=== PATIENT | male | born 1935 ===

== ENCOUNTER 2017-09-30 20:42 | Emergency (ER) | payer MEDICARE ==
[2017-09-30 22:34] LABS: Urine Appearance Clear; Urine Blood 1+ (Negative); Urine Color Yellow; Urine Ketones Negative (Negative); Urine Protein Negative (Negative); Urine Urobilinogen Negative (Negative)
[2017-09-30 22:35] VITALS: BP 109/69
--- NOTE | 2017-09-30 23:03 | ED ---
Saundra Singh Emily, scribed for Allie Braxton MD on 09/30/17 at 2142 . GI/ HPI - HPI Summary HPI Summary: This patient is an 82 year old M presenting to [facility] accompanied by daughter with a chief complaint of decreased urinary output that began 2 weeks ago. The patient rates the pain 0/10 in severity. Symptoms aggravated by nothing. Symptoms alleviated by nothing. Daughter reports that the patient has an enlarged prostate. Daughter does not believe the patient has had a previous catheter. - History of Current Complaint Chief Complaint: EDUrogenitalProblems Time Seen by Provider: 09/30/17 21:28 Stated Complaint: UNABLE TO URINATE Hx Obtained From: Patient Onset/Duration: Started Weeks Ago, Atraumatic, Still Present Timing: Constant Severity: Mild Current Severity: Mild Pain Intensity: 0 Aggravating Factor(s): Nothing Alleviating Factor(s): Nothing - Allergy/Home Medications Allergies/Adverse Reactions: Allergies Allergy/AdvReac Type Severity Reaction Status Date / Time No Known Allergies Allergy Verified 02/22/12 13:07 Home Medications: Home Medications Atorvastatin* [Lipitor*] 20 mg PO DAILY 09/30/17 [History Confirmed 09/30/17] Calcium Carb/D3/Magnesium/Zinc [Roberth Mag Zinc + D3 Tablet] 1 each PO DAILY [History Confirmed 09/30/17] Cholecalciferol TAB* [Vitamin D TAB*] 400 unit PO DAILY 09/30/17 [History Confirmed 09/30/17] Donepezil TAB* [Aricept 5 MG TAB*] 10 mg PO DAILY 09/30/17 [History Confirmed ] Finasteride [Proscar] 5 mg PO DAILY 09/30/17 [History Confirmed 09/30/17] Memory/Focus Vitamin 1 cap PO DAILY 09/30/17 [History Confirmed 09/30/17] Strong [place] 1 cap PO DAILY 09/30/17 [History Confirmed 09/30/17] Tamsulosin CAP* [Flomax CAP*] 0.8 mg PO BEDTIME 09/30/17 [History Confirmed ] Ubidecarenone [Coq10] 100 mg PO DAILY 09/30/17 [History Confirmed 09/30/17] amLODIPine TAB* [Norvasc 5 mg TAB*] 10 mg PO DAILY 09/30/17 [History Confirmed 09/30/17] metFORMIN* [Glucophage 500 MG TAB *] 500 mg PO DAILY 09/30/17 [History Confirmed 09/30/17] PMH/Surg Hx/FS Hx/Imm Hx Previously Healthy: No Endocrine/Hematology History: Denies: Hx Diabetes Cardiovascular History: Reports: Hx Hypertension - ON MEDICATION Denies: Hx Pacemaker/ICD History: Reports: Hx Dialysis Denies: Hx Renal Disease Sensory History: Denies: Hx Hearing Aid Psychiatric History: Denies: Hx Panic Disorder - Surgical History Surgery Procedure, Year, and Place: CATARACTS Infectious Disease History: No Infectious Disease History: Denies: Traveled Outside the [place] in Last 30 Days - Family History Known Family History: Negative: Cardiac Disease - Social History Occupation: Retired Lives: With Family Alcohol Use: None Hx Substance Use: No Substance Use Type: Reports: None Hx Tobacco Use: No Review of Systems Negative: Fever Genitourinary: Other - Positive decreased urinary output All Other Systems Reviewed And Are Negative: Yes Physical Exam - Summary Physical Exam Summary: VITAL SIGNS: Reviewed. GENERAL: Patient is a well-developed and nourished male who is lying comfortable in the stretcher. Patient is not in any acute respiratory distress. HEAD AND FACE: No signs of trauma. No ecchymosis, hematomas or skull depressions. No sinus tenderness. EYES: PERRLA, EOMI x 2, No injected conjunctiva, no nystagmus. EARS: Hearing grossly intact. Ear canals and tympanic membranes are within normal limits. MOUTH: Oropharynx within normal limits. NECK: Supple, trachea is midline, no adenopathy, no JVD, no carotid bruit, no c- spine tenderness, neck with full ROM. CHEST: Symmetric, no tenderness at palpation LUNGS: Clear to auscultation bilaterally. No wheezing or crackles. CVS: Regular rate and rhythm, S1 and S2 present, no murmurs or gallops appreciated. ABDOMEN: Soft. Suprapubic fullness, tenderness, and dullness. No rebound no guarding, and no masses palpated. Bowel sounds are normal. EXTREMITIES: FROM in all major joints, no edema, no cyanosis or clubbing. NEURO: Alert and oriented x 3. No acute neurological deficits. Speech is normal and follows commands. SKIN: Dry and warm Triage Information Reviewed: Yes Vital Signs On Initial Exam: Initial Vitals Temp Pulse Resp BP Pulse Ox 98.5 F 103 20 120/69 96 09/30/17 20:47 09/30/17 20:47 09/30/17 20:47 09/30/17 20:47 09/30/17 20:47 Vital Signs Reviewed: Yes Diagnostics - Vital Signs Vital Signs Temp Pulse Resp BP Pulse Ox 09/30/17 20:47 98.5 F 103 20 120/69 96 - Laboratory Lab Results: Lab Results 09/30/17 Range/Units 22:13 Urine Color Yellow Urine Appearance Clear Urine pH 7.0 (5-9) Ur Specific [place] 1.010 (1.010-1.030) Urine Protein Negative (Negative) Urine Ketones Negative (Negative) Urine Blood 1+ A (Negative) Urine Nitrate Negative (Negative) Urine Bilirubin Negative (Negative) Urine Urobilinogen Negative (Negative) Ur Leukocyte Esterase Negative (Negative) Urine WBC (Auto) Trace(0-5/hpf) (Absent) Urine RBC (Auto) Trace(0-2/hpf) (Absent) Urine Bacteria Absent (Absent) Urine Glucose Negative (Negative) Lab Statement: Any lab studies that have been ordered have been reviewed, and results considered in the medical decision making process. Re-Evaluation - Re-Evaluation First Eval Re-Evaluation Time: 22:42 Change: Unchanged Comment: Discussed results and plan of care with pt GIGU Course/Dx - Course Course Of Treatment: 82 years old male with past medical history enlarged prostate. Patient emergency room with his daughter because of difficulty urination. On exam blood skin patient was found to be in acute urinary retention. Radford catheter placed, 500 cc of urine output. Patient feeds better. Will be discharged home to follow-up. Dr. Simmons, - Diagnoses Provider Diagnoses: Urinary retention Discharge - Sign-Out/Discharge Documenting (check all that apply): Discharge/Admit/Transfer - Discharge home - Discharge Plan Condition: Stable Disposition: HOME Patient Education Materials: Urinary Retention in Men (ED) Referrals: Ramiro Palacios MD [Primary Care Provider] - 3 Days Benito Edward MD [Medical Doctor] - 1 Day Additional Instructions: RETURN TO THE EMERGENCY DEPARTMENT FOR NEW OR WORSENING SYMPTOMS - Billing Disposition and Condition Condition: STABLE Disposition: Home The documentation as recorded by the Saundra dunaway Emily accurately reflects the service I personally performed and the decisions made by me, Allie Braxton MD.
== END 2017-09-30 22:55 | disposition home or self-care (01) ==
LOC: ED 20:42
DX: R33.9 Retention of urine, unspecified (principal); I10 Essential (primary) hypertension; N40.0 Benign prostatic hyperplasia without lower urinary tract symptoms
CPT/HCPCS: 81003; 81015; 87086; 99282

== ENCOUNTER 2019-04-28 07:25 | Emergency (ER) | payer MEDICARE ==
--- NOTE | 2019-04-28 07:49 | ED ---
GI/ HPI - HPI Summary HPI Summary: Pt. is an 83 y.o male who presents to the ER for dysuria and bladder pain since this morning. Pt. with hx of enlarged prostate and sees Dr. Edward. Pt.'s daughter notes he had urinary retention last week and had rainey placed by Dr. Edward x 5 days. Rainey was removed yesterday and pt. was able to urinate normally. This morning pt. c/o severe bladder pressure and pain when trying to urinate. No associated fever, vomiting. Sxs are mild in severity. No current modifying factors. - History of Current Complaint Chief Complaint: EDUrogenitalProblems Time Seen by Provider: 04/28/19 07:48 Stated Complaint: PROSTATE ISSUE PER PT Hx Obtained From: Family/Marketing Communications Specialist Pain Intensity: 2 - Allergy/Home Medications Allergies/Adverse Reactions: Allergies Allergy/AdvReac Type Severity Reaction Status Date / Time amoxicillin [From Augmentin] Allergy Hives Verified 04/28/19 07:36 clavulanic acid Allergy Hives Verified 04/28/19 07:36 [From Augmentin] Home Medications: Home Medications Lisinopril TAB* [Prinivil TAB*] 10 mg PO DAILY 04/28/19 [History Confirmed 04/28] Mirtazapine TAB* [Remeron TAB*] 7.5 mg PO BEDTIME 04/28/19 [History Confirmed ] Saw [place] Fruit [Saw [place]] 450 mg PO DAILY 04/28/19 [History Confirmed ] Triamcinolone 0.1% CREAM(NF) [Kenalog Cream 0.1%(NF)] 1 applic TOPICAL DAILY [History Confirmed 04/28/19] PMH/Surg Hx/FS Hx/Imm Hx Previously Healthy: Yes Endocrine/Hematology History: Denies: Hx Diabetes Cardiovascular History: Reports: Hx Hypertension - ON MEDICATION Denies: Hx Pacemaker/ICD History: Denies: Hx Dialysis, Hx Renal Disease Sensory History: Denies: Hx Hearing Aid Psychiatric History: Denies: Hx Panic Disorder - Surgical History Surgery Procedure, Year, and Place: CATARACTS Infectious Disease History: No Infectious Disease History: Denies: Traveled Outside the [place] in Last 30 Days - Family History Known Family History: Positive: Non-Contributory Negative: Cardiac Disease - Social History Occupation: Retired Lives: With Family Alcohol Use: None Hx Substance Use: No Substance Use Type: Reports: None Hx Tobacco Use: No Smoking Status (MU): Never Smoked Tobacco Review of Systems Constitutional: Negative Negative: Fever, Chills Gastrointestinal: Negative Negative: Abdominal Pain, Vomiting, Nausea Genitourinary: Other - bladder pressure. Dysuria All Other Systems Reviewed And Are Negative: Yes Physical Exam Triage Information Reviewed: Yes Vital Signs On Initial Exam: Initial Vitals Temp Pulse Resp BP Pulse Ox 98.1 F 107 18 115/84 97 04/28/19 07:32 04/28/19 07:32 04/28/19 07:32 04/28/19 07:32 04/28/19 07:32 Vital Signs Reviewed: Yes Appearance: Positive: Well-Appearing - Pt. lying in bed, appears uncomfortable but nontoxic. Daughter present. Skin: Positive: Warm, Dry Head/Face: Positive: Normal Head/Face Inspection Eyes: Positive: Normal, EOMI, PA Neck: Positive: Supple Abdomen Description: Positive: Other: - Abd. is soft with suprapubic tenderness. Neurological: Positive: Normal, CN Intact II-III Psychiatric: Positive: Affect/Mood Appropriate Procedures - Sedation Patient Received Moderate/Deep Sedation with Procedure: No Diagnostics - Vital Signs Vital Signs Temp Pulse Resp BP Pulse Ox 04/28/19 07:32 98.1 F 107 18 115/84 97 - Laboratory Lab Statement: Any lab studies that have been ordered have been reviewed, and results considered in the medical decision making process. GIGU Course/Dx - Course Course Of Treatment: Increase Patient presenting with bladder pressure and pain. He is afebrile. Bladder scan shows her to than 500 cc. Patient attempted to urinate in the ER without success. A 16 [place] Coude placed by nurse. A large blood clot was drained from the bladder and urine started running clear. Patient feeling much better. Case discussed with Dr. Edward, patient's urologist, and he would like Rainey kept in place and would like patient started on Bactrim. He will follow up with patient in office. Discussed plan with patient and daughter. They will call the office today to schedule a follow-up appointment. Return to the ER symptoms change or worsen. Patient and family understand and agree with plan. - Diagnoses Provider Diagnoses: Urinary retention Discharge ED - Sign-Out/Discharge Documenting (check all that apply): Patient Departure - Discharge Plan Condition: Improved Disposition: HOME Prescriptions: Sulfamethox/Trimethoprim DS* [Bactrim DS 800/160 TAB*] 1 tab PO BID #20 tab Patient Education Materials: Urinary Retention in Men (ED), Rainey Catheter Placement and Care (ED) Referrals: Ramiro Palacios MD [Primary Care Provider] - Benito Edward MD [Medical Doctor] - Additional Instructions: Call Dr. Edward's office today to schedule a follow up appointment Take antibiotic as directed Return to ER if symptoms change or worsen - Billing Disposition and Condition Condition: IMPROVED Disposition: Home - Attestation Statements Provider Attestation: I have seen the patient with the MELLY and agree with the plan and documentation below except as noted: 81-year-old male history of BPH found to have urinary retention. Rainey placed. Placed on Bactrim. Follow-up with urology. Kasie Guaman MD
[2019-04-28 09:43] LABS: Urine Appearance Clear; Urine Bilirubin Negative (Negative); Urine Blood 3+ (Negative); Urine Color Yellow; Urine Glucose Negative (Negative); Urine Ketones Negative (Negative); Urine Nitrite Negative (Negative); Urine Protein 1+(30 mg/dL) (Negative); Urine Specific Gravity 1.006 (1.010-1.030); Urine Urobilinogen Negative (Negative)
[2019-04-28 09:46] LABS: Urine Bacteria Absent (Absent); Urine Red Blood Cell 3+(>10/hpf) (Absent); Urine White Blood Cell Trace(0-5/hpf) (Absent)
[2019-04-28 10:13] VITALS: BP 127/81
== END 2019-04-28 10:13 | disposition home or self-care (01) ==
LOC: ED 07:25
DX: R33.9 Retention of urine, unspecified (principal); R30.0 Dysuria; I10 Essential (primary) hypertension; Z79.899 Other long term (current) drug therapy; Z88.0 Allergy status to penicillin
CPT/HCPCS: 81003; 81015; 87086; 99283